=== PATIENT | female | born 1975 | race Two or more races ===

== ENCOUNTER 2017-07-18 07:09 | Outpatient (CLI) | payer OTHER | END 2017-07-18 07:17 | disposition home or self-care (01) | LOC: MAMO-SONO 07:09 | DX: N64.89 Other specified disorders of breast (principal); Z12.31 Encounter for screening mammogram for malignant neoplasm of breast; N64.4 Mastodynia; N60.11 Diffuse cystic mastopathy of right breast ==

== ENCOUNTER 2022-09-08 08:38 | Outpatient (CLI) | payer OTHER | END 2022-09-08 08:46 | disposition home or self-care (01) | LOC: SONOGRAMA 08:38 | PROVIDERS: ATTEND Pathology Anatomic Pathology & Clinical Pathology | DX: D34 Benign neoplasm of thyroid gland (principal); E04.9 Nontoxic goiter, unspecified ==